=== PATIENT | female | born 1955 | race Two or more races ===

== ENCOUNTER 2017-06-25 06:31 | Outpatient (CLI) | payer OTHER ==
[~2017-06-25 06:31] MED LIST: AMBIEN10 MG; KLONOPIN2 MG/TAB
== END 2017-06-25 08:00 | disposition home or self-care (01) ==
LOC: NUCLEAR 06:31
DX: R07.89 Other chest pain (principal); R94.31 Abnormal electrocardiogram [ECG] [EKG]
CPT/HCPCS: 78452; 93017; A9500; J0153

== ENCOUNTER 2017-09-10 09:33 | Outpatient (CLI) | payer OTHER | END 2017-09-10 09:40 | disposition home or self-care (01) | LOC: MRI 09:33 | DX: R41.3 Other amnesia (principal) | CPT/HCPCS: 70553; A9579 ==

== ENCOUNTER 2017-09-16 11:08 | Outpatient (CLI) | payer OTHER | END 2017-09-16 16:46 | disposition home or self-care (01) | LOC: NUCLEAR 11:08 | DX: N81.89 Other female genital prolapse (principal) | CPT/HCPCS: 78708; A9539; J1940 ==

== ENCOUNTER 2017-11-19 13:27 | Outpatient (CLI) | payer OTHER | END 2017-11-19 13:37 | disposition home or self-care (01) | LOC: MRI 13:27 | DX: M51.26 Other intervertebral disc displacement, lumbar region (principal); M51.36 Other intervertebral disc degeneration, lumbar region | CPT/HCPCS: 72148 ==

== ENCOUNTER → 2017-11-27 | Emergency (ER) | payer OTHER ==
[~2017-11-27] VITALS: Ht 152.4 cm; Wt 77.1 kg
== END | disposition home or self-care (01) ==
LOC: ER 10:25
DX: M54.2 Cervicalgia (principal); M62.838 Other muscle spasm; M46.82 Other specified inflammatory spondylopathies, cervical region

== ENCOUNTER 2017-12-08 11:22 | Outpatient (CLI) | payer OTHER | END 2017-12-08 11:23 | disposition home or self-care (01) | LOC: SONOGRAMA 11:22 → MAMO-SONO 11:45 | DX: M75.51 Bursitis of right shoulder (principal) ==